=== PATIENT | female | born 1980 | race Caucasian/White ===

== ENCOUNTER 2019-03-16 12:41 | Emergency (ER) | payer BC ==
[2019-03-16 13:57] VITALS: BP 134/98
[2019-03-16] MEDS ORDERED: Albuterol/Ipratropium NEB.SOL* Albuterol 2.5 MG/Ipratropium 0.5 MG 3 ML INH ONE (14:06)
--- NOTE | 2019-03-16 14:15 | UC ---
Respiratory Complaint HPI - HPI Summary HPI Summary: 38-year-old female who has been ill for approximately 6 days with cough, cold, fever, sore throat and earaches. She has no history of asthma. - History of Current Complaint Chief Complaint: UCRespiratory Stated Complaint: ST,COUGH,FEVER,CHILLS,CONGESTION x6 DAYS Time Seen by Provider: 03/16/19 14:03 Hx Obtained From: Patient Hx Last Menstrual Period: 02/13/19 ?: No Onset/Duration: Gradual Onset Timing: Intermittent Episodes Severity Initially: Mild Severity Currently: Mild Pain Intensity: 8 Character: Cough: Productive Aggravating Factors: Deep Breaths Alleviating Factors: Nothing Associated Signs And Symptoms: Positive: Fever, Chills, Wheezing, Dizziness, URI , Nasal Congestion, Sinus Discomfort - Allergies/Home Medications Allergies/Adverse Reactions: Allergies Allergy/AdvReac Type Severity Reaction Status Date / Time No Known Allergies Allergy Verified 03/16/19 13:57 Home Medications: Home Medications Dextromethorphan Hb/Doxylamine [Gnp Night Time Cough] 1 liq PO BEDTIME 03/16/19 [History Confirmed 03/16/19] Montelukast Sodium TAB* [Singulair TAB*] 10 mg PO DAILY 03/16/19 [History Confirmed 03/16/19] diphenhydrAMINE HCl [Benadryl Allergy] 50 mg PO BEDTIME 03/16/19 [History Confirmed 03/16/19] PMH/Surg Hx/FS Hx/Imm Hx Previously Healthy: Yes - Surgical History Surgical History: Yes Surgery Procedure, Year, and Place: Ear tubes, tubal, - Family History Known Family History: Positive: Non-Contributory - Social History Alcohol Use: None Substance Use Type: None Smoking Status (MU): Never Smoked Tobacco Review of Systems All Other Systems Reviewed And Are Negative: Yes Constitutional: Positive: Fever, Chills ENT: Positive: Sore Throat, Ear Ache, Nasal Discharge, Sinus Congestion, Sinus Pain/Tenderness Respiratory: Positive: Cough Is Patient Immunocompromised?: No Physical Exam Triage Information Reviewed: Yes Appearance: No Pain Distress, Well-Nourished, Ill-Appearing - Mildly ill- appearing Vital Signs: Initial Vital Signs Temp 99.3 F 03/16/19 13:51 Pulse 97 03/16/19 13:51 Resp 22 03/16/19 13:51 BP 134/98 06/15/19 13:51 Pulse Ox 99 03/16/19 13:51 Vital Signs Reviewed: Yes Eyes: Positive: Conjunctiva Clear ENT: Positive: Hearing grossly normal, Pharynx normal, TM red - Right tympanic membrane mildly erythematous. PE tube is in the ear canal and is not patent. Tympanic membrane is pearly-clay and there is no PE tube present., Sinus tenderness - Tenderness on palpation of the bilateral maxillary sinuses., Uvula midline Neck: Positive: Supple, Nontender, No Lymphadenopathy Respiratory: Positive: No respiratory distress, No accessory muscle use, Wheezing - Mild expiratory wheezing with forced expiration. Cardiovascular: Positive: RRR, No Murmur, Pulses Normal, Brisk Capillary Refill Musculoskeletal Exam: Normal Neurological Exam: Normal Psychological Exam: Normal Skin Exam: Normal Respiratory Course/Dx - Course Course Of Treatment: Chest x-ray:FINDINGS: CARDIOMEDIASTINAL SILHOUETTE: The cardiomediastinal silhouette is normal. CHEO: The cheo are normal. PLEURA: The costophrenic angles are sharp. No pleural abnormalities are noted. LUNG PARENCHYMA: The lungs are clear. ABDOMEN: The upper abdomen is clear. There is no subphrenic gas. BONES AND SOFT TISSUES: No bone or soft tissue abnormalities are noted. OTHER: None. IMPRESSION: NO ACTIVE CARDIOPULMONARY DISEASE. DuoNeb treatment: Patient felt better after the DuoNeb treatment and felt like she was taking more air. Her lungs were much improved with minimal wheezing. - Differential Dx/Diagnosis Provider Diagnosis: Bronchitis, Sinusitis, Right otitis media Discharge - Sign-Out/Discharge Documenting (check all that apply): Patient Departure All imaging exams completed and their final reports reviewed: Yes - Discharge Plan Condition: Fair Disposition: HOME Prescriptions: Amoxicillin/Clavulanate TAB* [Augmentin TAB 875*] 875 mg PO BID 10 Days #20 tab Fluconazole 150 MG TAB* [Diflucan 150 MG TAB*] 150 mg PO UC ONCE 1 Days #1 tablet predniSONE [Prednisone 20 MG TAB] 20 mg PO DAILY 9 Days #18 tablet Patient Education Materials: Sinusitis (ED), Ear Infection (ED), Acute Bronchitis (ED) Referrals: Komal Vasquez MD [Medical Doctor] - No Primary Care Phys,NOPCP [Primary Care Provider] - Additional Instructions: Increase fluids, take your prednisone and Augmentin with food. Definite follow- up with Dr. Vasquez in 2 or 3 days if no improvement. Go home and rest. - Billing Disposition and Condition Condition: FAIR Disposition: Home
== END 2019-03-16 15:03 | disposition home or self-care (01) ==
LOC: UCCORT 12:41
DX: J40 Bronchitis, not specified as acute or chronic (principal); J32.9 Chronic sinusitis, unspecified; H66.91 Otitis media, unspecified, right ear
CPT/HCPCS: 71046; 99212; A9270-GY; G0463

== ENCOUNTER 2019-08-20 09:30 | Emergency (ER) | payer BC ==
--- OUTSIDE RECORDS SUMMARY | 2019-08-20 10:44 | XMS REPORT | Continuity of Care Document ---
:1980 External Reference #:[id number] Author Name Komal Vasquez M.D. Address [address] [facility] [address] [place] [address] Problems Active Problems Provider Date Seasonal allergy Mariam Hui FNP Onset: 08/26/2014 Social History Type Date Description Comments Sex Unknown ETOH Use Drinks 3 Alcoholic Beverages Per Week Tobacco Use Start: Unknown Patient has never smoked Smoking Status Reviewed: 11/02/17 Patient has never smoked Allergies, Adverse Reactions, Alerts Description No Known Drug Allergies Medications Active Medications SIG Qnty Indications Ordering Provider Date Amoxicillin/Clavulanat 1 tab by mouth 30tabs J20.9 Komal Vasquez, 2018 e Potassium twice a day M.D. 875-125mg Tablets J01.90 J20.9 Diflucan 1 by mouth every 10tabs J20.9 Komal Vasquez, 07/18/2019 100mg Tablets day x 10 days M.D. Prednisone 2 tab by mouth 8tabs J20.9 Komal Vasquez, 07/18/2019 20mg Tablets daily 4 days M.D. Ventolin HFA 2 puffs four times 36gm J45.909 Komal Vasquez, 12/17/2013 108(90Base) a day as needed M.D. mcg/Act Aerosol Singulair 1 by mouth every 90tabs J30.9 Komal Vasquez, 05/08/2012 10mg Tablets day M.D. History Medications Prednisone 3 tab by mouth daily 18tabs J20.9 Komal Vasquez 03/19/2019 - 20mg 3 days, then 2 tab M., M.D. 03/26/2019 Tablets daily x 3 d , then 1 tab daily 3d Cheratussin ac 10 milliliters by 473ml R05 Komal Vasquez 03/19/2019 - mouth every 4 hours Chapin Tanner 03/31/2019 100-10mg/5ML as needed Solution Immunizations CPT Code Status Date Vaccine Lot # [id number] Given 10/03/2012 Flu Vaccine [id number] Given 09/19/2011 Flu Vaccine [id number] Given 08/30/2010 Flu Vaccine [id number] Given 09/15/2009 Admin Of Influenza H1N1 Vital Signs Date Vital Result Comment 07/18/2019 11:12am BP Systolic 135 mmHg BP Diastolic 58 mmHg Height 64 inches 5'4" Weight 229.00 lb BMI (Body Mass Index) 39.3 kg/m2 Heart Rate 81 /min Respiratory Rate 16 /min 03/19/2019 4:35pm BP Systolic 118 mmHg BP Diastolic 64 mmHg Height 64 inches 5'4" Weight 231.00 lb BMI (Body Mass Index) 39.6 kg/m2 Heart Rate 73 /min Body Temperature 98.6 F Respiratory Rate 16 /min Results Description No Information Available Procedures Date Code Description Status 07/18/2019 69163 Spirometry Completed 07/18/2019 07100 Tympanometry Completed Medical Devices Description No Information Available Encounters Type Date Location Provider Dx Diagnosis Office Visit 07/18/2019 [facility] Komal Vasquez J45.909 Unspecified asthma, 11:30a M.DKevin uncomplicated L20.9 Atopic dermatitis, unspecified J30.9 Allergic rhinitis, unspecified H81.13 Benign paroxysmal vertigo, bilateral J20.9 Acute bronchitis, unspecified J01.40 Acute pansinusitis, unspecified H66.93 Otitis media, unspecified, bilateral R06.02 Shortness of breath R05 Cough R09.81 Nasal congestion Office Visit 03/19/2019 4:30p [facility] Komal Vasquez J45.909 Unspecified asthma, Chapin Tanner uncomplicated L20.9 Atopic dermatitis, unspecified J30.9 Allergic rhinitis, unspecified H81.13 Benign paroxysmal vertigo, bilateral J20.9 Acute bronchitis, unspecified J01.40 Acute pansinusitis, unspecified H66.93 Otitis media, unspecified, bilateral R06.02 Shortness of breath R05 Cough R09.81 Nasal congestion Z00.01 Encounter for general adult medical exam w abnormal findings Assessments Date Code Description Provider 07/18/2019 J45.909 Unspecified asthma, uncomplicated PedroKomal M.D. 07/18/2019 L20.9 Atopic dermatitis, unspecified Komal Vasquez M.D. 07/18/2019 J30.9 Allergic rhinitis, unspecified PedroKomal M.D. 07/18/2019 H81.13 Benign paroxysmal vertigo, bilateral PedroKomal M.D. 07/18/2019 J20.9 Acute bronchitis, unspecified PedroKomal M.D. 07/18/2019 J01.40 Acute pansinusitis, unspecified PedroKomal chandra M.D. 07/18/2019 H66.93 Otitis media, unspecified, bilateral PedroKomal chandra M.D. 07/18/2019 R06.02 Shortness of breath PedroKomal M.D. 07/18/2019 R05 Cough Komal Vasquez M.D. 07/18/2019 R09.81 Nasal congestion Komal Vasquez M.D. 03/19/2019 J45.909 Unspecified asthma, uncomplicated PedroKomal M.D. 03/19/2019 L20.9 Atopic dermatitis, unspecified PedroKomal M.D. 03/19/2019 J30.9 Allergic rhinitis, unspecified PedroKomal M.D. 03/19/2019 H81.13 Benign paroxysmal vertigo, bilateral PedroKomal M.D. 03/19/2019 J20.9 Acute bronchitis, unspecified PedroKomal M.D. 03/19/2019 J01.40 Acute pansinusitis, unspecified Komal Vasquez M.D. 03/19/2019 H66.93 Otitis media, unspecified, bilateral PedroKomal M.D. 03/19/2019 R06.02 Shortness of breath Komal Vasquez M.D. 03/19/2019 R05 Cough Komal Vasquez M.D. 03/19/2019 R09.81 Nasal congestion Komal Vasquez M.D. 03/19/2019 Z00.01 Encounter for general adult medical Komal Vasquez M.D. examination with abnorma Plan of Treatment 07/18/2019 - Komal Vasquez M.D.J45.909 Unspecified asthma, uncomplicatedComments:MDI / NEBULIZER TX PRN AVOID EXPOSURE TO SMOKING OR FXITST92.9 Atopic dermatitis, unspecifiedComments:SKIN CARE INSTRUCTIONS LOTION OR BABY OIL 2-3 APPLICATION PER DAYUSE MOISTURIZING SOAPAVOID PROLONGED WATER EXPOSUREAVOID USING HOT WATER IN PJATKVL58.9 Allergic rhinitis, unspecifiedComments:INCREASE PO FLUID USE ANTIHISTAMINE PRN SECOND HAND SMOKING BZHPXZKICJ69.13 Benign paroxysmal vertigo, bilateralComments:NLEFXFQ62.9 Acute bronchitis, unspecifiedNew Medication:Amoxicillin/Clavulanate Potassium 875-125 mg - 1 tab by mouth twice a dayDiflucan 100 mg - 1 by mouth every day x 10 daysPrednisone 20 mg - 2 tab by mouth daily 4 daysComments:INCREASE PO TFSXIQLBLB85.40 Acute pansinusitis, unspecifiedComments:INCREASE PO FLUIDTYLENOL OR MOTRIN PRN ANTIHISTAMINE PRNH66.93 Otitis media, unspecified, bilateralComments:INCREASE PO FLUID TYLENOL OR MOTRIN PRN ANTIHISTAMINE PRNR06.02 Shortness of breathComments:INCREASE PO [id number] CoughComments: INCREASE CLEAR LIQUIDSSTEAMGARGLE WARM SALT H2O TID ROBITUSSIN DM PRNR09.81 Nasal congestionComments:INCREASE PO FLUIDTYLENOL OR MOTRIN PRNREST USE ANTIHISTAMINE PRN Functional Status Description No Information Available Mental Status Description No Information Available Referrals Description No Information Available
[2019-08-20 10:54] VITALS: BP 137/88
--- NOTE | 2019-08-20 11:42 | UC ---
Lower Extremity/Ankle HPI - HPI Summary HPI Summary: 38-year-old female comes in with chief complaint of left ankle pain. Yesterday she slipped on some steps and inverted her left ankle. She had immediate pain. She was able to continue to ambulate on it. Pain is worse with ambulation. Pain does radiate down the lateral aspect of her foot. She's taken some ibuprofen and iced it which did help. - History of Current Complaint Chief Complaint: UCLowerExtremity Stated Complaint: S/P FALL(08/19/19) LEFT FOOT INJURY Time Seen by Provider: 08/20/19 11:30 Hx Last Menstrual Period: last month Pain Intensity: 7 - Allergies/Home Medications Allergies/Adverse Reactions: Allergies Allergy/AdvReac Type Severity Reaction Status Date / Time No Known Allergies Allergy Verified 08/20/19 10:48 Home Medications: Home Medications Ibuprofen TAB* [Advil TAB*] 600 mg PO ONCE PRN 08/20/19 [History Confirmed 08/20] PMH/Surg Hx/FS Hx/Imm Hx Previously Healthy: Yes - Surgical History Surgical History: Yes Surgery Procedure, Year, and Place: Ear tubes, tubal, - Family History Known Family History: Positive: Non-Contributory - Social History Alcohol Use: None Substance Use Type: None Smoking Status (MU): Never Smoked Tobacco Review of Systems All Other Systems Reviewed And Are Negative: Yes Constitutional: Positive: Negative Skin: Positive: Negative Eyes: Positive: Negative ENT: Positive: Negative Respiratory: Positive: Negative Cardiovascular: Positive: Negative Gastrointestinal: Positive: Negative Motor: Positive: Negative Neurovascular: Positive: Negative Musculoskeletal: Positive: Other: - SEE HPI Neurological: Positive: Negative Psychological: Positive: Negative Is Patient Immunocompromised?: No Physical Exam Triage Information Reviewed: Yes Appearance: Well-Appearing, Well-Nourished, Pain Distress - MILD WITH LT ANKLE ROM AND EXAM Vital Signs: Initial Vital Signs Temp 98.6 F 08/20/19 10:49 Pulse 95 08/20/19 10:49 Resp 17 08/20/19 10:49 BP 137/88 08/20/19 10:49 Pulse Ox 99 08/20/19 10:49 Vital Signs Reviewed: Yes Eye Exam: Normal Eyes: Positive: Conjunctiva Clear Neck: Positive: Supple Respiratory: Positive: No respiratory distress Musculoskeletal: Positive: Other: - Left ankle is swollen and tender on the lateral malleolus. The rest of the foot is nontender to palpation. Achilles tendon is nontender and intact. Normal capillary refill. No sensation deficit. Neurological: Positive: Alert Psychological: Positive: Age Appropriate Behavior Skin Exam: Normal Lower Extremity Course/Dx - Course Course Of Treatment: Patient Relations Manager: Hernan Chu F, ([id number]) Frozen Food Selector: JOHN ( NUANCE) Report Date: 08/20/2019 11:13:00 Report Status: Final ====== Start of Report Content Patient Name: ANGELA EDWARDS Medical Record#: [id number] Ordering Physician: Alan Calderon MD Acct.#: [id number] : 1980 Age: 38 Sex: F Location: [facility] Exam Date: 08/20/19 1044 ADM Status: REG ER Order Information: FOOT LEFT 3+ VWS Accession Number: [id number] CPT: 30192 INDICATION: Left foot injury. TECHNIQUE : 3 views of the left foot were obtained. FINDINGS: There is lateral soft tissue swelling. The bones are in normal alignment. No fracture is seen. Joint spaces appear maintained. IMPRESSION: NO EVIDENCE FOR FRACTURE, IF THE PATIENT' S SYMPTOMS PERSIST RECOMMEND FOLLOW-UP IMAGING. <Electronically signed by Hernan Chu MD in OV > 08/20/191108 Dictated By: Hernan Chu MD Dictated Date/Time: 08/20/191107 Transcribed Date/Time: 08/20/191107 Copy to: CC:Komal Vasquez MD; [facility]; Alan Calderon MD Imaging - [facility] Imaging [facility] Imaging [facility] [address] [place] [address] [address] [address] ph [phone] ph [phone]) ph ([phone]) End of Report Content ==== Patient Relations Manager: Hernan Chu F ([id number]) Frozen Food Selector: JOHN, ( NUANCE) Report Date: 08/20/2019 11:14:00 Report Status: Final ====== Start of Report Content Patient Name: ANGELA EDWARDS Medical Record#: [id number] Ordering Physician: Alan Calderon MD Acct.#: [id number] : 1980 Age: 38 Sex: F Location: [facility] Exam Date: 08/20/19 1044 ADM Status: REG ER Order Information: ANKLE LEFT 3+VWS Accession Number: [id number] CPT: 83330 INDICATION: Left ankle injury. TECHNIQUE: 3 views of the left ankle were obtained. FINDINGS: There is diffuse soft tissue swelling. The bones are normal alignment. No fracture is seen. IMPRESSION: SOFT TISSUE SWELLING, NO FRACTURE IS SEEN. <Electronically signed by Hernan Chu MD in OV> 08/20/19 1111 Dictated By: Henran Chu MD Dictated Date/Time: 1108 Transcribed Date/Time: 08/20/191108 Copy to: CC:Komal Vasquez MD; [facility]; Alan Calderon MD Imaging - [facility] Imaging - [facility] Imaging - [facility] [address] [facility] [address] [place], [place] [address] [place] [id number] [place] [address] ph [phone]) ph [phone]) ph ([phone]) End of Report Content Discussed the x-rays with the patient. No fracture seen. Ricky wrap and gel splint placed by nursing and clinic patient neurovascular intact after placement. Patient also given touches by nursing. Plan is ice elevation anti- inflammatories weightbearing as tolerated and follow-up with sports medicine if not completely improved. - Differential Dx/Diagnosis Provider Diagnosis: Left ankle sprain Discharge ED - Sign-Out/Discharge Documenting (check all that apply): Patient Departure All imaging exams completed and their final reports reviewed: No Studies - Discharge Plan Condition: Stable Disposition: HOME Patient Education Materials: Ankle Sprain (ED) Referrals: Komal Vasquez MD [Primary Care Provider] - [facility] [Provider Group] Additional Instructions: FOLLOW UP WITH SPORTS MEDICINE IF NOT COMPLETELY IMPROVED. GET REEVALUATED SOONER IF NOT IMPROVING OR WORSE OR ANY QUESTIONS OR CONCERNS. - Billing Disposition and Condition Condition: STABLE Disposition: Home
== END 2019-08-20 11:57 | disposition home or self-care (01) ==
LOC: UCCORT 09:30
DX: S93.402A Sprain of unspecified ligament of left ankle, initial encounter (principal); X50.0XXA Overexertion from strenuous movement or load, initial encounter; Y92.9 Unspecified place or not applicable
CPT/HCPCS: 99213; G0463

== ENCOUNTER 2019-09-29 14:23 | Emergency (ER) | payer BC ==
[2019-09-29 16:38] VITALS: BP 126/94
--- NOTE | 2019-09-29 16:40 | UC ---
Lower Extremity/Ankle HPI - HPI Summary HPI Summary: 38-year-old female fell in August injuring her left ankle. She had a sprain at the time and no fracture. She fell again on September 07 (correction from the ) and sprained her ankle again. She has been icing and elevating but continues to have pain. - History of Current Complaint Chief Complaint: UCLowerExtremity Stated Complaint: LT FOOT COMPLAINT Time Seen by Provider: 09/29/19 16:40 Hx Obtained From: Patient Hx Last Menstrual Period: last month ?: No Onset/Duration: Sudden Onset Severity Initially: Mild Severity Currently: Mild Pain Intensity: 6 Aggravating Factor(s): Ambulation Alleviating Factor(s): Rest Able to Bear Weight: Yes - Allergies/Home Medications Allergies/Adverse Reactions: Allergies Allergy/AdvReac Type Severity Reaction Status Date / Time No Known Allergies Allergy Verified 09/29/19 16:38 Home Medications: Home Medications Acetaminophen TAB* [Tylenol TAB*] 975 mg PO Q4H PRN 09/29/19 [History Confirmed 09/29/19] PMH/Surg Hx/FS Hx/Imm Hx Previously Healthy: Yes - Surgical History Surgical History: Yes Surgery Procedure, Year, and Place: Ear tubes, tubal, - Family History Known Family History: Positive: Non-Contributory - Social History Lives: With Family Alcohol Use: None Substance Use Type: None Smoking Status (MU): Never Smoked Tobacco Review of Systems All Other Systems Reviewed And Are Negative: Yes Musculoskeletal: Positive: Other: - Patient has full range of motion however in the morning the ankle is almost normal but then as the day progresses it becomes more swollen and painful. Is Patient Immunocompromised?: No Physical Exam Triage Information Reviewed: Yes Appearance: Well-Appearing, No Pain Distress, Well-Nourished Vital Signs: Initial Vital Signs Temp 98.8 F 09/29/19 16:35 Pulse 95 09/29/19 16:35 Resp 15 09/29/19 16:35 BP 126/94 09/29/19 16:35 Pulse Ox 100 09/29/19 16:35 Vital Signs Reviewed: Yes Musculoskeletal: Positive: Strength Intact, ROM Intact, Other: - Good peripheral pulses neuro sensation capillary refill, Achilles is intact, base of the fifth and first metatarsal's nontender. Patient has mild swelling and tenderness on palpation to the lateral malleolus. No deformity, erythema, or bruising is noted. Neurological Exam: Normal Psychological Exam: Normal Skin Exam: Normal Skin: Positive: Other Lower Extremity Course/Dx - Course Course Of Treatment: Left Ankle x-ray:FINDINGS: There is soft tissue swelling surrounding the ankle joint. The well corticated bones exhibit normal alignment. Joint spaces appear maintained. No fracture is seen. IMPRESSION: THERE IS SOFT TISSUE SWELLING SURROUNDING THE ANKLE JOINT WITHOUT UNDERLYING RADIOGRAPHICALLY VISIBLE FRACTURE OR DISLOCATION. If the patient's symptoms persist, follow-up imaging is recommended. The patient states that she has an Ricky bandage at home which she'll use. She can apply heat or ice to the area and definite follow-up with the orthopedist if she has continued symptoms. - Differential Dx/Diagnosis Provider Diagnosis: Ankle sprain Discharge ED - Sign-Out/Discharge Documenting (check all that apply): Patient Departure All imaging exams completed and their final reports reviewed: Yes - Discharge Plan Condition: Good Disposition: HOME Patient Education Materials: Ankle Sprain (DC) Referrals: Komal Vasquez MD [Primary Care Provider] - Milka Pitts MD [Medical Doctor] - Additional Instructions: Elevate as much as possible, may ambulate as pain permits. May take Motrin or Tylenol for pain. Definite follow-up with the orthopedist if no improvement in 4 or 5 days. - Billing Disposition and Condition Condition: GOOD Disposition: Home - Attestation Statements Provider Attestation: I was available for consult. This patient was seen by the BYRON. The patient was not presented to , seen by or examined by ut -Christian Gloria MD
== END 2019-09-29 17:19 | disposition home or self-care (01) ==
LOC: UCCORT 14:23
DX: S93.402A Sprain of unspecified ligament of left ankle, initial encounter (principal); W19.XXXA Unspecified fall, initial encounter; Y92.9 Unspecified place or not applicable
CPT/HCPCS: 99211; G0463